=== PATIENT | male | born 1970 | race African-American/Black ===

== ENCOUNTER 2018-08-24 07:24 | Inpatient (IN) | payer OTHER ==
[2018-08-21 13:57] VITALS: BMI 33.7
[2018-08-24] MEDS ORDERED: CEFAZOLIN 2 GM/50 ML BAG ONE (08:20)
[2018-08-24 08:53] LABS: Hemoglobin 15.8 g/dL (14.0-18.0); Mean Corpuscular HGB CONC 32.5 g/dL (32.0-36.0); Mean Corpuscular Hemoglobin 29.6 pg (27.0-31.0); Mean Corpuscular Volume 91.2 fL (78.0-98.0); Mean Platelet Volume 7.7 fL (7.4-10.4); Platelet Count 264 thou/uL (130-400); RBC Distribution Width 12.5 % (11.5-14.5); Red Blood Cell (RBC) Count 5.33 mill/uL (4.70-6.10); White Blood Cell (WBC) Count 4.5 thou/uL (4.8-10.8)
[2018-08-24 09:18] LABS: Anion Gap 11 mmol/L (10-20); BUN (Urea Nitrogen) 18 mg/dL (8.9-20.6); Calc. Creatinine Clearance 109 mL/min (70-130); Calcium 9.4 mg/dL (7.8-10.44); Carbon Dioxide 24 mmol/L (22-29); Chloride 107 mmol/L (98-107); Estimated GFR-MDRD 73; Glucose 80 mg/dL (70-105); Potassium 4.4 mmol/L (3.5-5.1); Sodium 138 mmol/L (136-145)
[2018-08-24] MEDS ORDERED: Sodium Chloride 0.9% 10 ML ONE (10:54)
[2018-08-24] MEDS ORDERED: Fentanyl 250 MCG/5 ML VIAL ONE (11:00)
[2018-08-24] MEDS ORDERED: Promethazine HCl 25 MG/ML VIAL SLOW IVP PRN (12:41)
[2018-08-24] MEDS ORDERED: Promethazine HCl 25 MG/ML VIAL IM PRN ×2 (12:41→13:47)
[2018-08-24] MEDS ORDERED: Ondansetron HCl/PF 4 MG/2 ML Vial IVP PRN (12:41)
[2018-08-24] MEDS ORDERED: HYDROmorphone 2 MG/ML VIAL SLOW IVP PRN (12:41)
[2018-08-24] MEDS ORDERED: Ondansetron PF 4 MG/2 ML Vial IM PRN (13:47)
[2018-08-24] MEDS ORDERED: Promethazine 25 MG TAB PO PRN (13:47)
[2018-08-24] MEDS ORDERED: tiZANidine HCl 4 MG TAB PO PRN (13:47)
[2018-08-24] MEDS ORDERED: diphenhydrAMINE 25 MG CAP PO PRN (13:47)
[2018-08-24] MEDS ORDERED: HYDROcodone/Acetaminophen 10/325 mg Tablet PO PRN (13:47)
[2018-08-24] MEDS ORDERED: Milk Of Magnesia 30 ML UDCUP PO PRN (13:47)
[2018-08-24] MEDS ORDERED: Promethazine HCl 12.5 MG SUPP PR PRN (13:47)
[2018-08-24] MEDS ORDERED: Mag-Al 1200 mg/1200 mg/30 ML UDCUP PO PRN (13:47)
[2018-08-24] MEDS ORDERED: diphenhydrAMINE 50 MG/ML VIAL IVP PRN (13:47)
[2018-08-24] MEDS ORDERED: Morphine 4 MG/ML VIAL SLOW IVP PRN (13:47)
[2018-08-24] MEDS ORDERED: traMADol HCl 50 MG TAB PO PRN ×2 (13:47)
[2018-08-24] MEDS ORDERED: Fentanyl 100 MCG/2 ML VIAL ONE ×2 (13:54→15:28)
[2018-08-24] MEDS ORDERED: Ondansetron PF 4 MG/2 ML Vial ONE (14:20)
[2018-08-24] MEDS ORDERED: ePHEDrine/0.9% NaCl/PF SYRINGE 50 mg/10 ml ONE (14:20)
[2018-08-24] MEDS ORDERED: Glycopyrrolate 0.2 MG/ML 5 ML SYRINGE ONE (14:20)
[2018-08-24] MEDS ORDERED: PROPOFOL 200 MG/20 ML VIAL ONE (14:20)
[2018-08-24] MEDS ORDERED: Dexamethasone 20 MG/5 ML VIAL ONE (14:20)
[2018-08-24] MEDS ORDERED: Lidocaine 1% PF 5 ML VIAL ONE (14:20)
[2018-08-24] MEDS ORDERED: PHENYLEPHRINE-NS 100 MCG/ML 10 ML SYRINGE ONE (14:20)
[2018-08-24] MEDS ORDERED: CEFAZOLIN 2 GM/50 ML-DEXTROSE 2 GM in Premix Bag 1 BAG IVPB SCH (16:00)
[2018-08-24] MEDS: Sodium Chloride 0.9% 1,000 ML IV SCH (17:45)
[2018-08-24] MEDS: CEFAZOLIN 2 GM/50 ML-DEXTROSE 2 GM in Premix Bag 1 BAG IVPB SCH (18:22)
[2018-08-24] MEDS: HYDROcodone/Acetaminophen 10/325 mg Tablet PO PRN (18:28)
[2018-08-24] MEDS: Topiramate 100 MG TAB PO SCH (20:35)
[2018-08-24] MEDS ORDERED: Prazosin HCl 1 MG CAP PO SCH (21:00)
[2018-08-24] MEDS ORDERED: traZODone HCl 50 MG TAB PO SCH ×2 (21:00)
[2018-08-25] MEDS: CEFAZOLIN 2 GM/50 ML-DEXTROSE 2 GM in Premix Bag 1 BAG IVPB SCH ×2 (01:24→09:38)
[2018-08-25] MEDS: HYDROcodone/Acetaminophen 10/325 mg Tablet PO PRN (03:23)
[2018-08-25] MEDS: Sodium Chloride 0.9% 1,000 ML IV SCH (03:44)
[2018-08-25 07:36] VITALS: BP 109/65; TEMP 97.7
[2018-08-25] MEDS: Topiramate 100 MG TAB PO SCH (08:07)
[2018-08-25] MEDS ORDERED: Lisinopril 10 MG TAB PO SCH (09:00)
--- NOTE | 2018-08-26 04:39 | DIS ---
DATE OF ADMISSION: 08/24/2018 DATE OF DISCHARGE: 08/25/2018 HOSPITAL COURSE: Mr. Donaldson is a 47-year-old male, seen by us recently clinic for progressive low back discomfort and found to have increased degenerative changes at the level above his prior fusion L4 through S1. He also had a previous dorsal column stimulator placed, which was not providing any benefit; therefore, he underwent removal of hardware and extension of lumbar fusion to L3-L4 with removal of dorsal column stimulator. Following the surgery, he was transitioned to the [facility] floor, where his pain was well controlled with p.o. medications, he was tolerating regular diet and voiding appropriately. He did have IRAIS drain placed intraoperatively with only 40 mL of output overnight. This was removed on postoperative day #1. The patient was up ambulating without difficulty in the department and reports that he feels ready to go home. I seen the patient at bedside. He is awake, alert, in no acute distress. He has free active range of motion of all extremities. He has no focal motor weakness or reflex asymmetry. He does have some dark red blood on his dressing, which I removed and examined his incision, which is clean and intact. There is no active drainage from the incision. We will plan to remove his IRAIS drain, apply new dressings, and discharge the patient to home. I have discussed home care precautions. We will plan a followup with the patient to be seen in the office. He has provided with scripts for Monona, Zanaflex, and Keflex. Job ID: [id number]
--- NOTE | 2018-08-26 21:44 | EKG ---
Test Reason : PREOP Blood Pressure : / mmHG Vent. Rate : 069 BPM Atrial Rate : 069 BPM P-R Int : 196 ms QRS Dur : 086 ms QT Int : 382 ms P-R-T Axes : 067 029 009 degrees QTc Int : 409 ms Normal sinus rhythm Normal ECG No previous ECGs available Confirmed by Giuliana SUAREZ ([id number]) on 08/26/2018 9:43:53 PM Referred By: VANNESSA Confirmed By:Giuliana SUAREZ
--- NOTE | 2018-08-27 15:09 | OP ---
DATE OF PROCEDURE: 08/24/2018 RECREATION INSTRUCTOR: MANUELITO Cox PROCEDURES PERFORMED: Removal of hardware L4-S1, exploration of spinal fusion L4-S1, L3-L4 laminectomy, posterolateral arthrodesis L3-L4, pedicle screw instrumentation L3-L4, demineralized bone matrix and local morselized autograft; removal of dorsal column battery generator, removal of electrode paddle array, dorsal column stimulator. DESCRIPTION OF PROCEDURE: The patient was brought to the operating room and intubated. He was rolled in prone position on gel-filled chest rolls. All relevant incisions were marked. We opened exposing the battery and removed this without difficulty. We opened the region where the electrode paddle array was secured to the spinal fascia. We were able to remove all of the wires, but the paddle itself was quite adherent and stuck in the epidural space and I elected not to attempt to remove this. It would require additional laminectomy to remove in my opinion. Therefore, the wires were cut at the shortest possible spot. These wounds were extensively irrigated. Immaculate hemostasis was secured. Vancomycin power was applied, and the wounds were closed in anatomic layers. The lumbar incision was reopened, extended superiorly. We exposed L3 through S1 and identified the prior hardware. We removed the prior nuts and rods from L4-S1. I explored the spinal fusion here and felt it to be solid. However, the instrumentation was quite sautered in by bone and extensive bony removal was required just to remove the rods and nuts. I, therefore, elected to leave the screws in situ. In the L3-L4 region, a modest laminectomy was performed for the posterior decompression. Pedicle suture was placed at L3 using lateral fluoroscopic guidance. A meggan was then secured between L3 and the previous screws that were at L4 secured by nuts which were final tightened. The wound was then extensively irrigated, and immaculate hemostasis was secured. Combination of demineralized bone matrix and local morselized autograft was laid over the lamina and posterolateral at L3-L4 for the posterolateral arthrodesis. Vancomycin powder was applied, and the wounds were closed in anatomic layers over drain. Job ID: [id number]
== END 2018-08-25 10:49 | disposition home or self-care (01) | DRG 460 ==
LOC: SURG A 07:24
PROVIDERS: ADMIT Neurological Surgery; ATTEND Neurological Surgery
PROC: 0QP004Z Removal of Internal Fixation Device from Lumbar Vertebra, Open Approach (ICD-10-PCS; principal; 2018-08-24)
PROC: 0SG10AJ Fusion of 2 or more Lumbar Vertebral Joints with Interbody Fusion Device, Posterior Approach, Anterior Column, Open Approach (ICD-10-PCS; 2018-08-24)
PROC: 00PU0MZ Removal of Neurostimulator Lead from Spinal Canal, Open Approach (ICD-10-PCS; 2018-08-24)
PROC: 0JPT0MZ Removal of Stimulator Generator from Trunk Subcutaneous Tissue and Fascia, Open Approach (ICD-10-PCS; 2018-08-24)
DX: M43.16 Spondylolisthesis, lumbar region (principal); M54.5 Low back pain; Z98.890 Other specified postprocedural states; I10 Essential (primary) hypertension; F41.9 Anxiety disorder, unspecified; G43.909 Migraine, unspecified, not intractable, without status migrainosus; M51.36 Other intervertebral disc degeneration, lumbar region; Z96.7 Presence of other bone and tendon implants
CPT/HCPCS: 76001; 80048; 85027; 93005; 93010; C1713; C1768; J1100; J1200; J2001; J2405; J2704; J3010; J3370; J3490

== ENCOUNTER 2018-09-09 13:43 | Outpatient (CLI) | payer OTHER ==
--- NOTE | 2018-09-09 15:57 | RAD ---
TWO VIEWS LUMBAR SPINE: Date: 09-09-18 Comparison: None. History: Evaluate lumbar spine following surgery. FINDINGS: There are posterior midline cutaneous mae at the level of the lower thoracic spine, in the lumbar region, and posterior to the left iliac wing. There is a metallic disc device present within the L4- 5 intervertebral disc space centrally and within the L5-S1 intervertebral disc space along the anteri or margin of the intervertebral disc space. No prior imaging is available. There are bilateral pedicl e screws present at L3 and L4 with vertically oriented interlocking rods. There are also bilateral pe dicle screws present at L5 and at S1. There is no significant anterolisthesis or retrolisthesis. Technique and presence of hardware limits assessment of the posterior inferior aspect of the L5 vertebral body and the posterior aspect of the L5-S1 intervertebral disc space. No significant anterolisthesis or retrolisthesis. There is disc space narrowing and anterior osteophyte formation at L1-2 and L3-4. Dorsal column stimu lator leads overlie the lower thoracic spine but are disconnected. The patient appears status post bilateral laminectomy at L3, L4, and L5. There is multilevel facet hy pertrophy of the lower lumbar spine. IMPRESSION: Multilevel post-operative change within the lumbar spine. There are degenerative changes as well. POS: ROBLES
== END 2018-09-09 13:44 | disposition home or self-care (01) ==
LOC: TBSIIMAG 13:43
PROVIDERS: ATTEND Neurological Surgery
DX: M54.9 Dorsalgia, unspecified (principal); M47.816 Spondylosis without myelopathy or radiculopathy, lumbar region; Z98.890 Other specified postprocedural states
CPT/HCPCS: 72100

== ENCOUNTER 2019-04-26 07:36 | Inpatient (IN) | payer OTHER ==
[2019-04-23 13:16] VITALS: BMI 34.2
[2019-04-26] MEDS ORDERED: Sodium Chloride 0.9% 10 ML ONE (09:42)
[2019-04-26] MEDS ORDERED: ceFAZolin Sodium (SDC) 2 GM/100 ML BAG ONE (09:45)
[2019-04-26 10:10] LABS: Hemoglobin 15.5 g/dL (14.0-18.0); Mean Corpuscular HGB CONC 32.9 g/dL (32.0-36.0); Mean Corpuscular Hemoglobin 30.3 pg (27.0-31.0); Mean Corpuscular Volume 92.2 fL (78.0-98.0); Mean Platelet Volume 7.4 fL (7.4-10.4); Platelet Count 238 thou/uL (130-400); RBC Distribution Width 12.9 % (11.5-14.5); Red Blood Cell (RBC) Count 5.11 mill/uL (4.70-6.10); White Blood Cell (WBC) Count 4.9 thou/uL (4.8-10.8)
[2019-04-26 10:12] LABS: Anion Gap 9 mmol/L (10-20); BUN (Urea Nitrogen) 10 mg/dL (8.9-20.6); Calc. Creatinine Clearance 113 mL/min (70-130); Calcium 9.4 mg/dL (7.8-10.44); Carbon Dioxide 26 mmol/L (22-29); Chloride 108 mmol/L (98-107); Estimated GFR-MDRD 75; Glucose 88 mg/dL (70-105); Potassium 4.1 mmol/L (3.5-5.1); Sodium 139 mmol/L (136-145)
[2019-04-26 10:28] LABS: Band 1 % (5-11); Eosinophils 2 % (0-10); Lymphocytes 54 % (21-51); MDiff Complete? YES; Monocytes 3 % (0-10); Neutrophil 40 % (42-75); RBC Morphology Normal
[2019-04-26] MEDS ORDERED: Fentanyl 100 MCG/2 ML VIAL ONE ×2 (11:29→13:04)
[2019-04-26] MEDS ORDERED: Dexamethasone 20 MG/5 ML VIAL ONE (12:22)
[2019-04-26] MEDS ORDERED: Rocuronium Bromide 10 MG/ML (10ML VIAL) ONE (12:22)
[2019-04-26] MEDS ORDERED: Ketorolac Tromethamine 30 MG/ML VIAL ONE (12:22)
[2019-04-26] MEDS ORDERED: Succinylcholine Chloride 20 MG/ML 10 ml SYRINGE FS ONE (12:22)
[2019-04-26] MEDS ORDERED: PROPOFOL 200 MG/20 ML VIAL ONE (12:22)
[2019-04-26] MEDS ORDERED: Ondansetron PF 4 MG/2 ML Vial ONE (12:22)
[2019-04-26] MEDS ORDERED: Milk Of Magnesia 30 ML UDCUP PO PRN (13:18)
[2019-04-26] MEDS ORDERED: diphenhydrAMINE 50 MG/ML VIAL IVP PRN (13:18)
[2019-04-26] MEDS ORDERED: Mag-Al 1200 mg/1200 mg/30 ML UDCUP PO PRN (13:18)
[2019-04-26] MEDS ORDERED: traMADol HCl 50 MG TAB PO PRN ×2 (13:18)
[2019-04-26] MEDS ORDERED: diphenhydrAMINE 25 MG CAP PO PRN (13:18)
[2019-04-26] MEDS ORDERED: tiZANidine HCl 4 MG TAB PO PRN (13:18)
[2019-04-26] MEDS ORDERED: Promethazine HCl 25 MG/ML VIAL IM PRN (13:18)
[2019-04-26] MEDS ORDERED: Promethazine HCl 12.5 MG SUPP PR PRN (13:18)
[2019-04-26] MEDS ORDERED: Ondansetron PF 4 MG/2 ML Vial IVP PRN (13:18)
[2019-04-26] MEDS ORDERED: Promethazine 25 MG TAB PO PRN (13:18)
[2019-04-26] MEDS ORDERED: CEFAZOLIN 2 GM, IV Admixture Fee-Chemo 1 UNITS in Sodium Chloride 0.9% 100 ML IVPB SCH (14:00)
--- NOTE | 2019-04-26 15:29 | EKG ---
Test Reason : PRROP Blood Pressure : / mmHG Vent. Rate : 063 BPM Atrial Rate : 063 BPM P-R Int : 184 ms QRS Dur : 086 ms QT Int : 396 ms P-R-T Axes : 067 035 005 degrees QTc Int : 405 ms Normal sinus rhythm Normal ECG When compared with ECG of 24-AUG-2018 08:40, No significant change was found Confirmed by KALPANA CORDERO, DR. Anton ([id number]) on 04/26/2019 3:29:06 PM Referred By: VANNESSA Confirmed By:DR. Desean ACUNA MD
[2019-04-26] MEDS ORDERED: HYDROcodone/Acetaminophen 10/325 mg Tablet ONE (16:10)
[2019-04-26] MEDS: HYDROcodone/Acetaminophen 10/325 mg Tablet PO PRN ×2 (16:11→20:36)
--- NOTE | 2019-04-26 17:12 | OP ---
DATE OF PROCEDURE: 04/26/2019 MARINE DRAFTER: Amanuel Cox PA-C PROCEDURES PERFORMED: Anterior cervical diskectomy C6-C7, interbody arthrodesis, intervertebral biomechanical device, local morselized autograft, demineralized bone matrix, anterior titanium instrumentation C6-C7. DESCRIPTION OF PROCEDURE: The patient was brought to the operating room and intubated. He was positioned supine with the head in modest extension on a gel-filled donut. Incision was made in the right precervical area and dissected medial to the sternocleidomastoid muscle, identified the anterior cervical spinal, and the level was confirmed by x-ray. We debrided a significant anterior osteophytic disease, placed distraction across the disk spaces, and using operative microscope and microdissection technique was completely decompressed the neural elements from severe disk and osteophytic disease particularly on the left at C6-C7. Next, bony endplates were decorticated for arthrodesis and appropriate-sized intervertebral biomechanical PEEK device was brought into the field. There was demineralized bone matrix local morselized autograft, and tapped in place securely at C6-C7. Next, an anterior plate was brought into the field and secured to C6 and C7 using two 14-mm screws at each level. The wound was then extensively irrigated MAC hemostasis was secured and the wound was closed in anatomic layers over drain. Job ID: [id number]
[2019-04-26] MEDS: Sodium Chloride 0.9% 1,000 ML IV SCH (18:36)
[2019-04-26] MEDS ORDERED: SUMAtriptan Succinate 50 MG TAB PO PRN (18:43)
[2019-04-26] MEDS: CEFAZOLIN 2 GM, IV Admixture Fee-Chemo 1 UNITS in Sodium Chloride 0.9% 100 ML IVPB SCH (20:33)
[2019-04-26] MEDS: Topiramate 100 MG TAB PO SCH (20:34)
[2019-04-26] MEDS ORDERED: Prazosin HCl 1 MG CAP PO SCH (21:00)
[2019-04-26] MEDS ORDERED: traZODone HCl 50 MG TAB PO SCH (21:00)
[2019-04-27] MEDS: Sodium Chloride 0.9% 1,000 ML IV SCH ×2 (03:19→03:51)
[2019-04-27] MEDS: CEFAZOLIN 2 GM, IV Admixture Fee-Chemo 1 UNITS in Sodium Chloride 0.9% 100 ML IVPB SCH (03:51)
[2019-04-27] MEDS: HYDROcodone/Acetaminophen 10/325 mg Tablet PO PRN ×2 (04:58→09:19)
[2019-04-27 07:12] VITALS: BP 126/75; TEMP 97.6
--- NOTE | 2019-04-27 09:09 | DIS ---
DATE OF ADMISSION: 04/26/2019 DATE OF DISCHARGE: 04/27/2019 HOSPITAL COURSE: The patient is a 48-year-old male, recently seen in our office for cervical radiculopathy and found to have herniated disk at C6-C7. He underwent C6-C7 ACDF on 04/26/2019. Surgery was uncomplicated and the patient was transitioned to the Med/Surg floor, where his pain was well controlled with p.o. medications, he was tolerating regular diet, and he was voiding appropriately. The patient did have IRAIS drain with only 15 mL out overnight and this was removed on postoperative day #1. The patient dismissed to home following removal. Discussed home care precautions and will follow up in 2 weeks. Job ID: [id number]
[2019-04-27] MEDS: Topiramate 100 MG TAB PO SCH (09:19)
== END 2019-04-27 10:10 | disposition home or self-care (01) | DRG 473 ==
LOC: SDC 07:36 → SURG B 10:41
PROVIDERS: ADMIT Neurological Surgery; ATTEND Neurological Surgery
PROC: 0RG10A0 Fusion of Cervical Vertebral Joint with Interbody Fusion Device, Anterior Approach, Anterior Column, Open Approach (ICD-10-PCS; principal; 2019-04-26)
DX: M50.123 Cervical disc disorder at C6-C7 level with radiculopathy (principal); Z79.899 Other long term (current) drug therapy; Z98.1 Arthrodesis status
CPT/HCPCS: 76000; 80048; 85025; 93005; 93010; C1713; C1776; J0690; J3010; J3490

== ENCOUNTER 2019-05-12 11:00 | Outpatient (CLI) | payer OTHER ==
--- NOTE | 2019-05-12 13:24 | RAD ---
CERVICAL SPINE FOUR VIEWS: 05/12/19 COMPARISON: None. HISTORY: Cervical radiculopathy. FINDINGS: Anterior discectomy and fusion hardware is present at C6-7. There is anterior osteophyte formation an d mild disc space narrowing at C4-5 and C5-6. The cervicothoracic junction demonstrates no acute abno rmality. There is mild prevertebral soft tissue swelling anterior to the fusion plate consistent wit h the provided history of recent surgery. No evidence for hardware failure or acute fracture. Open mo uth odontoid view demonstrates a normal appearing dens and C1-2 articulation. IMPRESSION: Anterior discectomy and fusion hardware at C6-7 with mild adjacent prevertebral soft tissue swelling. POS: [facility]
== END 2019-05-12 11:01 | disposition home or self-care (01) ==
LOC: TBSIIMAG 11:00
PROVIDERS: ATTEND Neurological Surgery
DX: M54.12 Radiculopathy, cervical region (principal); M79.89 Other specified soft tissue disorders; Z98.1 Arthrodesis status
CPT/HCPCS: 72040